=== PATIENT | male | born 1995 | race Two or more races ===

== ENCOUNTER 2023-05-12 23:49 | Emergency (ER) | payer BC, MEDICAID, OTHER ==
[~2023-05-12] VITALS: Ht 170.2 cm; Wt 79.5 kg
[2023-05-13 00:25] LABS: Basophils # (auto) 0.1 10 ^3/uL (0-0.2); Basophils % (auto) 0.8 % (0.0-2.0); Eosinophils # (auto) 0.1 10 ^3/uL (0-0.8); Hemoglobin 16.5 g/dL (13.5-17.5); Lymphocytes # (auto) 2.8 10 ^3/uL (0.4-5.4); Lymphocytes % (auto) 34.3 % (10.0-50.0); Mean Corpuscular Hemoglobin 31.4 pg (28.0-32.0); Mean Corpuscular Hgb Conc. 34.4 g/dL (32.0-36.0); Mean Corpuscular Volume 91.5 fL (80.0-100.0); Monocytes # (auto) 0.6 10 ^3/uL (0-1.3); Monocytes % (auto) 7.8 % (0.0-12.0); Neutrophils # (auto) 4.5 10 ^3/uL (1.6-8.6); Neutrophils % (auto) 56.1 % (37.0-80.0); Nucleated Red Blood Cells % 0.2 %; Red Blood Cells 5.25 10^6/uL (4.5-5.90); Red Cell Distribution Width 13.1 % (11.8-14.3); White Blood Cell 8.1 10^3/uL (4.4-10.8)
[2023-05-13 00:34] LABS: Urine Bacteria NONE SEEN /hpf (None Seen); Urine Blood Negative /uL (Negative); Urine Clarity Clear (Clear); Urine Color Colorless (Yellow); Urine Protein, UAD TRACE (Negative); Urine Specific Gravity 1.012 (1.001-1.035); Urine Urobilinogen Normal (Negative); Urine WBC 1 /hpf (0 - 3); Urine pH 5.5 (5.0-8.0)
[2023-05-13 00:44] LABS: Albumin 4.1 g/dL (3.4-5.0); Calcium 8.6 mg/dL (8.5-10.1); Potassium 3.5 mmol/L (3.5-5.1)
[2023-05-13 00:47] LABS: Bilirubin, Total 0.2 mg/dL (0.2-1.0); Total Protein 7.8 g/dL (6.4-8.2)
[2023-05-13 02:26] VITALS: PULSE 87; RESP 16; O2SAT 97
[2023-05-13] MEDS ORDERED: AUG875T PO (04:46)
[2023-05-13] MEDS ORDERED: CYCL-839 PO (04:46)
[2023-05-13 05:40] VITALS: BP 119/85; PULSE 80; RESP 16; TEMP 98.8; O2SAT 98
== END 2023-05-13 06:07 | disposition home or self-care (01) ==
LOC: ER 23:49
DX: K52.9 Noninfective gastroenteritis and colitis, unspecified (principal); M62.830 Muscle spasm of back; R10.9 Unspecified abdominal pain
CPT/HCPCS: 36415; 74176; 80053; 81001; 85025